=== PATIENT | female | born 1995 | race Caucasian/White ===

== ENCOUNTER 2022-05-29 12:50 | Emergency (ER) | payer MEDICAID, SELFPAY ==
--- NOTE | ~2022-05-29 | CT_ITS ---
EXAMINATION: CT ABDOMEN AND PELVIS WITH CONTRAST CLINICAL INFORMATION: Right lower quadrant pain COMPARISON: None TECHNIQUE: Multidetector volumetric images were obtained from the superior aspect of the liver through the pubic symphysis following administration 85 mL of Omnipaque 350 intravenous contrast. Sagittal and coronal reformatted images were obtained on the technologist's workstation. Oral contrast: No This CT examination was performed using dose optimization techniques as appropriate, variously including the following: *Automated exposure control *Adjustment of mA and/or kV according to patient size (this includes techniques or standardized protocols for targeted exams where dose is matched to indication/reason for exam; i.e. extremities or head) *Use of iterative reconstruction technique DLP: 834 mGy-cm FINDINGS: LUNG BASES: The visualized lung bases are unremarkable. LIVER, GALLBLADDER, AND BILIARY TREE: The liver is normal in size, shape, and attenuation. No focal hepatic lesion or biliary ductal dilatation is present. The gallbladder is unremarkable with no evidence of radiopaque gallstones, gallbladder wall thickening, or obvious pericholecystic inflammatory changes. PANCREAS: Unremarkable. SPLEEN: Unremarkable. ADRENAL GLANDS: Unremarkable. KIDNEYS AND URETERS: No stones. There is mild fullness of the right renal plexus system which may related to recent passage of stone. No left-sided abnormality. BLADDER: Unremarkable. GASTROINTESTINAL TRACT: The small and large bowel are unremarkable. The appendix is retrocecal and normal.. ABDOMINAL WALL: No significant hernia is appreciated. LYMPH NODES: Normal. VASCULAR: Unremarkable. PELVIC VISCERA: Unremarkable. OSSEOUS STRUCTURES: Unremarkable. CT/CT abdomen pelvis w IV con IMPRESSION: Normal appendix. Mild fullness of the right renal collecting system which may be related to recent passage of stone. Fleischner guidelines were followed.
--- NOTE | 2022-05-29 14:10 | ED.GENADULT ---
HPI - General Adult General Chief complaint: Abdominal Pain Stated complaint: R side abd pain Time Seen by Provider: 05/29/22 16:56 Related Data Previous Rx's Medication Instructions Recorded ketorolac 10 mg tablet 10 mg PO TID PRN pain 5 days #14 05/29/22 tabs Allergies Allergy/AdvReac Type Severity Reaction Status Date / Time No Known Allergies Allergy Verified 05/29/22 14:10 [facility] Social History Social History Advance Directives: No Advance Directives Information Provided: No Physical Exam ED Vital Signs: Vital Signs - 24 hr 05/29/22 20:43 Temperature 98.5 F Pulse Rate 85 Respiratory Rate 18 Blood Pressure 123/79 Pulse Oximetry 99 Oxygen Delivery Method Room Air BMI result Body Mass Index 34.2 Course Course Course Narrative: RME - 27 y/o female presents to the ER with worsening right sided abdominal pain for the last 5 days. Started with some swelling in that area and now is more uncomfortable, which is constant w/ wax/waning stabbing pains. No N/V/D or fever. worse with eating. has nexplonon for control with menses last week. No urinary symptoms. Exam with mild right middle abdominal tenderness. no RUQ or RLQ tenderness, abd is soft and benign. Will start with labs, UA, Upreg. Medications Administered Discontinued Medications Generic Name Dose Route Start Last Admin Trade Name Freq PRN Reason Stop Dose Admin Iohexol 100 ml 05/29/22 18:47 05/29/22 18:47 Iohexol 350 Mg/Ml 100 Ml Infus..Btl IV 05/29/22 18:48 85 ml ONCE ONE Administration Ketorolac Tromethamine 30 mg 05/29/22 18:03 05/29/22 18:22 Ketorolac Tromethamine 15 Mg/Ml Vial IVPUSH 05/29/22 18:04 30 mg ONCE ONE Administration Simethicone 160 mg 05/29/22 18:12 05/29/22 18:22 Simethicone 80 Mg Tab.Chew PO 05/29/22 18:13 160 mg ONCE ONE Administration Discharge Plan Discharge Clinical Impression: Abdominal pain Patient Disposition: Home, Self-Care Instructions: Abdominal Pain (ED) Additional Instructions: Take your medications as prescribed. If you were prescribed antibiotics today, it is important that you take your medication to their entirety, do not skip any doses, do not finish them early. Follow-up with your primary care provider this week. Follow-up with urology as necessary information below Return to the emergency department with new or worsening symptoms. Such as fevers, chills, chest pain, shortness of breath, nausea, vomiting, dizziness, headache, vision changes, lethargy In case of emergency call 911 Your laboratory studies were reassuring. Your urine showed no signs of infection. Urine negative. CT scan shows suspicion that he may have passed a kidney stone. Do not take any other NSAIDs or drink alcohol while taking Toradol. CT/CT abdomen pelvis w IV con IMPRESSION: Normal appendix. Mild fullness of the right renal collecting system which may be related to recent passage of stone. ? Fleischner guidelines were followed. Prescriptions: New ketorolac 10 mg tablet 10 mg PO TID PRN (Reason: pain) 5 Days Qty: 14 0RF Rx Instructions: Tolerated IM in the department Referrals: [facility] [place] [facility] [place]Provider Group] [facility] [place] [facility] [Provider Group] - 1 week Physician,Unknown J [Primary Care Provider] - 2 days Stand Alone Forms: Work/School Release Interventions: ED Discharge Assessment Last Done: 05/29/22 20:44 Discharge Date/Time: 05/29/22 20:44
[2022-05-29 14:11] VITALS: BP 140/86; PULSE 84; RESP 18; TEMP 36.6; O2SAT 100; BMI 34.2
[2022-05-29 15:45] LABS: MANUAL DIFF FLAG NO
[2022-05-29 15:47] LABS: Basophils Absolute Auto 0.1 X10*3/uL (0.0-0.2); Basophils Percent Auto 0.6 % (0-2); Eosinophils Absolute Auto 0.1 X10*3/uL (0.0-0.4); Eosinophils Percent Auto 1.5 % (0-4); Hematocrit 37.8 % (37.0-47.0); Hemoglobin 12.5 g/dl (12.0-16.0); Imm Gran Abs Auto 0.05 X10*3/uL (0.00-0.03); Imm Gran Pct Auto 0.6 % (0.0-0.4); Lymphocytes Percent Auto 22.5 % (20-40); Mean Corpuscular HGB Conc 33.1 g/dl (31.0-35.0); Mean Corpuscular Hemoglobin 30.1 pg (27.0-33.0); Mean Corpuscular Volume 91.1 fL (80.0-98.0); Mean Platelet Volume 10.4 fL (9.4-12.3); Monocytes Absolute Auto 0.8 X10*3/uL (0.1-1.2); Monocytes Percent Auto 8.9 % (2-11); Neutrophils Absolute Auto 5.8 x10*3/uL (2.0-8.3); Neutrophils Percent Auto 65.9 % (45-73); Platelet Count 208 X10*3/uL (160-400); Red Blood Count 4.15 X10*6/uL (4.20-5.50); Red Cell Distribution Width 12.5 % (11.0-16.0); White Blood Count 8.7 X10*3/uL (4.8-10.8)
[2022-05-29 15:47] LABS: Appearance Urine Clear; Color Urine Yellow; Glucose Urine UA Negative (Negative); Leukocyte Esterase Urine Negative (Negative); Nitrite Urine Negative (Negative); PH 5.5 (5.0-9.0); Specific Gravity - Urine 1.025 (1.005-1.025); Urine Blood Negative (Negative); Urine Ketones Negative (Negative); Urine Protein Negative (Neg-Trace)
[2022-05-29 15:49] LABS: UPreg QC Valid YES; Urine Pregnancy NEGATIVE (NEGATIVE)
[2022-05-29 16:03] LABS: Alanine Aminotransferase 29 U/L (0-31); Albumin Level 3.9 g/dL (3.5-5.0); Alkaline Phosphatase 64 U/L (39-117); Anion Gap 9 (12-20); Aspartate Amino Transferase 20 U/L (5-31); Bilirubin Direct < 0.2 mg/dL (0.0-0.5); Bilirubin Total 0.2 mg/dL (0.0-1.0); Blood Urea Nitrogen 16 mg/dL (9-16); Calcium 8.7 mg/dL (8.4-10.2); Carbon Dioxide 27 mmol/L (22-29); Chloride 106 mmol/L (96-108); Creatinine Clr Calc Pharmacy 161.4; Estimated Glomerular Filt Rate > 60; Glucose Random 88 mg/dL (60-115); Lipase 22 U/L (8-78); Potassium 4.3 mmol/L (3.3-5.1); Sodium 138 mmol/L (135-145); Total Protein 6.2 g/dL (6.5-8.0)
--- NOTE | 2022-05-29 17:10 | ED_ITS ---
HPI - Abdominal Pain General Chief Complaint: Abdominal Pain Stated Complaint: R side abd pain Time Seen by Provider: 05/29/22 16:56 Source: patient Mode of arrival: ambulatory Limitations: no limitations History of Present Illness HPI narrative: This is a 27-year-old female no significant medical history presenting to the emergency department with complaints of upper abdominal pain for the past 5 days. Pain is localized to the left and right upper quadrants, she tells me it wraps around to her flank region. She tells me it is constant and there at all times however at times it increases in severity to a sharp stabbing pain. Worse after eating. Patient tells me she has never had this before. Patient still has her gallbladder and her appendix. Patient denies nausea, vomiting, diarrhea, constipation, rectal bleeding, headache, vision changes, dizziness, chest pain, shortness of breath, changes in diet, dysuria, urinary frequency urgency, flank pain. Does not think she is. No previous GI history. Patient does mention that she recently got off her period. Related Data Previous Rx's Medication Instructions Recorded ketorolac 10 mg tablet 10 mg PO TID PRN pain 5 days #14 05/29/22 tabs Allergies Allergy/AdvReac Type Severity Reaction Status Date / Time No Known Allergies Allergy Verified 05/29/22 14:10 Review of Systems Review of Systems Constitutional : No Weight loss, No Fever, No Chills, No Fatigue, No Malaise ENT/Mouth : No sore throat, No Rhinorrhea Eyes: No Eye Pain, No Swelling, No Redness Cardiovascular : No Chest Pain, No SOB, No Dyspnea on Exertion, No Orthopnea, No Edema, No Palpitations Respiratory : No Cough, No Sputum, No Wheezing Gastrointestinal : No Nausea, No Vomiting, No Diarrhea, No Constipation, + abdominal Pain, No Hematochezia, No Melena Genitourinary : No Dysuria, No Urinary Frequency, No Hematuria, Musculoskeletal : No joint pain, No Myalgias, No Joint Swelling Skin : No Skin Lesions, No rash Neuro : No Weakness, No Numbness, No Dizziness, No Headache Psych : No Anxiety/Panic, No Depression All other systems reviewed and are negative Yes all other systems are reviewed and are negative PMFSH Past Medical History Attestation statement: The following information was validated with the patient. Source: old records reviewed and nursing notes reviewed Social History Social History Advance Directives: No Advance Directives Information Provided: No Physical Exam ED Vital Signs: Vital Signs - 24 hr 05/29/22 14:11 Temperature 97.9 F Pulse Rate 84 Respiratory Rate 18 Blood Pressure 140/86 H Pulse Oximetry 100 Oxygen Delivery Method Room Air BMI result Body Mass Index 34.2 VSS Appearance: Alert.? Oriented X3.? No acute distress.? Head: Normocephalic, atraumatic, no step-offs or deformities Eyes: Pupils equal, round and reactive to light.? ENT: Pharynx normal.? Neck: Normal inspection.? Neck supple.? CVS: Normal heart rate and rhythm.? Pulses normal.? Respiratory: No respiratory distress.? Breath sounds normal.? Abdomen: Soft and nontender.? Negative Hernandez sign. Negative Rovsing, McBurney's, psoas and obturator Skin: Skin warm and dry.? Normal skin color.? Normal skin turgor.? Extremities: No lower extremity edema.? No calf ttp. 5/5 strength to bilateral upper and lower extremities Neuro: Oriented X 3.? No motor deficit.? No sensory deficit. CN 2-12 intact Course Reevaluation(s) Reevaluation #1: CBC appears to be within normal limits. Chemistry with no acute findings requiring intervention. Lipase within normal limits unlikely pancreatitis. UA negative. Time: 20:09 Reevaluation #2: CT of the abdomen pelvis with normal appendix. Mild fullness of the right renal collecting system which is likely secondary to recent passage of stone. I explain CT scan findings with patient. Patient verbalizes understanding of findings. She has no questions. She tells me she is feeling better after Toradol. She will be discharged home with Toradol. Will also give her Urology follow-up. This time I feel comfortable discharge home with prompt PCP and prompt urology follow-up Medical Decision Making Medical Decision Making MDM Narrative: 27-year-old female presents with 5 days of upper abdominal pain. Described as intermittent, colicky in nature. Physical examination benign. Negative CVA tenderness bilaterally Concerns for possible kidney stone. Unlikely UTI, pyelo, cystitis. No signs of acute abdomen, unlikely cholecystitis, appendicitis, pancreatitis or diverticulitis. History and physical exam not consistent with ovarian torsion and ectopic Plan labs, CT scan, urine. Medications Administered Discontinued Medications Generic Name Dose Route Start Last Admin Trade Name Kel PRN Reason Stop Dose Admin Iohexol 100 ml 05/29/22 18:47 05/29/22 18:47 Iohexol 350 Mg/Ml 100 Ml Infus..Btl IV 05/29/22 18:48 85 ml ONCE ONE Administration Ketorolac Tromethamine 30 mg 05/29/22 18:03 05/29/22 18:22 Ketorolac Tromethamine 15 Mg/Ml Vial IVPUSH 05/29/22 18:04 30 mg ONCE ONE Administration Simethicone 160 mg 05/29/22 18:12 05/29/22 18:22 Simethicone 80 Mg Tab.Chew PO 05/29/22 18:13 160 mg ONCE ONE Administration Critical Care Time Critical Care Time Critical Care Time: No Discharge Plan Discharge Clinical Impression: Abdominal pain Patient Disposition: Home, Self-Care Instructions: Abdominal Pain (ED) Additional Instructions: Take your medications as prescribed. If you were prescribed antibiotics today, it is important that you take your medication to their entirety, do not skip any doses, do not finish them early. Follow-up with your primary care provider this week. Follow-up with urology as necessary information below Return to the emergency department with new or worsening symptoms. Such as fevers, chills, chest pain, shortness of breath, nausea, vomiting, dizziness, headache, vision changes, lethargy In case of emergency call 911 Your laboratory studies were reassuring. Your urine showed no signs of infection. Urine negative. CT scan shows suspicion that he may have passed a kidney stone. Do not take any other NSAIDs or drink alcohol while taking Toradol. CT/CT abdomen pelvis w IV con IMPRESSION: Normal appendix. Mild fullness of the right renal collecting system which may be related to recent passage of stone. ? Fleischner guidelines were followed. Prescriptions: New ketorolac 10 mg tablet 10 mg PO TID PRN (Reason: pain) 5 Days Qty: 14 0RF Rx Instructions: Tolerated IM in the department [place]: [facility] [place] [facility] [place] Group] Physician,Unknown J [Primary Care Provider] - 2 days [facility] [place] [facility] [place] [facility] [place] Group] - 1 week Stand Alone Forms: Work/School Release
[2022-05-29] MEDS: Simethicone 80 MG TAB.CHEW 160 MG PO (18:22)
[2022-05-29] MEDS: Ketorolac Tromethamine 15 MG/ML VIAL 30 MG IVPUSH (18:22)
[2022-05-29] MEDS: iohexoL 350 MG/ML 100 ML INFUS..BTL IV (18:47)
[2022-05-29 20:43] VITALS: BP 123/79; PULSE 85; RESP 18; TEMP 36.9; O2SAT 99
== END 2022-05-29 20:44 | disposition home or self-care (01) ==
PROVIDERS: Physician Assistant; Emergency Provider Internal Medicine
DX: R10.11 Right upper quadrant pain (principal); Z79.899 Other long term (current) drug therapy
CPT/HCPCS: 36415; 74177; 80048; 80076; 81003; 81025; 83690; 83735; 85025; 96374; 99283; 99284; J1885; Q9967